=== PATIENT | male | born 1955 | race Caucasian/White ===

== ENCOUNTER → 2017-03-28 | Outpatient (CLI) | payer OTHER ==
[~2017-03-28] MED LIST: ASCO10007 PO; ASPI-496 PO; CALC200T37 PO; CAYE450C PEG; CHOL20002 PO; GINK120T3 PO; LEVO125T5 PO; LUTE20TA PO; OMEG1CAP34 PO; UBID100C19 PO
== END | disposition home or self-care (01) ==
LOC: CFH 12:48
PROVIDERS: ATTEND General Practice
DX: Z01.818 Encounter for other preprocedural examination (principal); R93.1 Abnormal findings on diagnostic imaging of heart and coronary circulation; R00.2 Palpitations; Z82.49 Family history of ischemic heart disease and other diseases of the circulatory system
CPT/HCPCS: 78452; 93017; A9502

== ENCOUNTER → 2017-03-31 | Outpatient (CLI) | payer OTHER | END | disposition home or self-care (01) | LOC: CARD 09:09 | PROVIDERS: ATTEND General Practice | DX: R93.1 Abnormal findings on diagnostic imaging of heart and coronary circulation (principal); R00.2 Palpitations; Z82.49 Family history of ischemic heart disease and other diseases of the circulatory system | CPT/HCPCS: 93225 ==

== ENCOUNTER → 2018-04-02 | Outpatient (CLI) | payer OTHER ==
[~2018-04-02] MED LIST changes: +ASCO100019 PO; -ASCO10007 PO; +CALC-680 PO; -CALC200T37 PO; -CAYE450C PEG; +CAYE450C4 PEG; +OMNIPAQUE 350 MG/ML, 100ML BOTTLE ONE
== END | disposition home or self-care (01) ==
LOC: CFH 11:16 → EDSTATUS 11:30
PROVIDERS: ATTEND General Practice
DX: I25.119 Atherosclerotic heart disease of native coronary artery with unspecified angina pectoris (principal); I10 Essential (primary) hypertension
CPT/HCPCS: 75574; Q9967

== ENCOUNTER 2018-05-08 09:58 | Day surgery (SDC) | payer OTHER ==
[~2018-05-08] VITALS: Ht 167.6 cm; Wt 84.9 kg
[~2018-05-08 09:58] MED LIST changes: -OMNIPAQUE 350 MG/ML, 100ML BOTTLE ONE
[2018-05-08 11:43] VITALS: BP 158/97
[2018-05-08] MEDS ORDERED: HEPARIN 1,000 UNITS/ML, 10ML ONE (11:43)
[2018-05-08] MEDS ORDERED: BIVALIRUDIN 250 MG ONE (11:43)
[2018-05-08] MEDS ORDERED: FENTANYL PF 100 MCG/2ML ONE (11:43)
[2018-05-08] MEDS ORDERED: MIDAZOLAM 1 MG/ML, 5ML ONE (11:43)
[2018-05-08] MEDS ORDERED: PRASUGREL 10 MG TABLET ONE (11:43)
[2018-05-08] MEDS ORDERED: FLUT9.9S NAS (11:55)
[2018-05-08] MEDS ORDERED: METF500T5 PO (11:55)
[2018-05-08] MEDS ORDERED: DIPHENHYDRAMINE 50 MG/ML, 1ML ONE (11:55)
[2018-05-08] MEDS ORDERED: VERAPAMIL 2.5 MG/ML, 2ML ONE (11:55)
[2018-05-08] MEDS ORDERED: ALPR0.02 PO (11:55)
[2018-05-08] MEDS ORDERED: VITA1TAB19 PO (11:55)
[2018-05-08 12:06] LABS: BASOPHILS # (AUTO) 0.05 x10^3/uL (0-0.1); BASOPHILS % (AUTO) 1 % (0-1); EOSINOPHILS # (AUTO) 0.14 x10^3/uL (0-0.4); EOSINOPHILS % (AUTO) 3 % (1-7); LYMPHOCYTES # (AUTO) 1.77 x10^3/uL (1-3.4); LYMPHOCYTES % (AUTO) 38 % (22-44); MD NO; MEAN CORPUSCULAR HEMOGLOBIN 31.3 pg (27.5-34.5); MEAN CORPUSCULAR HGB CONC 34.7 g/dL (33.2-36.2); MEAN CORPUSCULAR VOLUME 90.3 fL (81-97); MEAN PLATELET VOLUME 8.4 fL (7.4-10.4); MONOCYTES # (AUTO) 0.37 x10^3/uL (0.2-0.8); MONOCYTES % (AUTO) 8 % (2-9); NEUTROPHILS # (AUTO) 2.39 x10^3/uL (1.8-6.8); NEUTROPHILS % (AUTO) 51 % (42-75); PLATELET COUNT 268 x10^3/uL (130-400); RED BLOOD COUNT 4.82 x10^6/uL (4.38-5.82); RED CELL DISTRIBUTION WIDTH 13.8 % (9.4-14.8)
[2018-05-08 12:11] LABS: ANION GAP 7 mmol/L (5-15); CALCIUM 8.7 mg/dL (8.5-10.1); CHLORIDE 111 mmol/L (98-107); CREATININE 1.04 mg/dL (0.7-1.3)
[2018-05-08] MEDS ORDERED: LIDOCAINE-MPF 2%, 2ML ONE (12:20)
[2018-05-08] MEDS ORDERED: ROSU10TA PO (13:29)
== END 2018-05-08 16:29 | disposition home or self-care (01) ==
LOC: CACL 09:58
PROVIDERS: ATTEND Internal Medicine Cardiovascular Disease
DX: I25.10 Atherosclerotic heart disease of native coronary artery without angina pectoris (principal); I10 Essential (primary) hypertension; E11.9 Type 2 diabetes mellitus without complications; Z79.82 Long term (current) use of aspirin; Z79.899 Other long term (current) drug therapy; Z72.89 Other problems related to lifestyle; Z98.890 Other specified postprocedural states
CPT/HCPCS: 36415; 80048; 85025; 93458; 93571; 93572; 99156; 99157; C1769; C1887; C1894; J1200; J1644; J2250; J3010; J3490; Q9967; J0583

== ENCOUNTER → 2020-05-23 | Outpatient (CLI) | payer MEDICARE ==
[~2020-05-23] MED LIST changes: +ALPR0.02 PO; +FLUT9.9S NAS; +METF500T17 PO; +ROSU10TA2 PO; +UBID100C10 PO; -UBID100C19 PO; +VITA1TAB19 PO
== END | disposition home or self-care (01) ==
LOC: CVU 07:52
PROVIDERS: ATTEND Internal Medicine Cardiovascular Disease
DX: I65.23 Occlusion and stenosis of bilateral carotid arteries (principal); I25.10 Atherosclerotic heart disease of native coronary artery without angina pectoris; E78.5 Hyperlipidemia, unspecified
CPT/HCPCS: 78452; 93017; 93880; A9502